=== PATIENT | male | born 1985 | race Caucasian/White ===

== ENCOUNTER → 2017-07-11 | Outpatient (CLI) | payer OTHER | LOC: BMCIMAGING 10:37 | PROVIDERS: ATTEND Emergency Medicine | DX: M79.671 Pain in right foot (principal); M25.571 Pain in right ankle and joints of right foot ==

== ENCOUNTER 2019-03-31 19:31 | Emergency (ER) | payer OTHER ==
[2019-03-31 19:36] VITALS: BP 149/112
[2019-03-31] MEDS ORDERED: ACETAMINOPHEN 325 MG TAB PO ONE (19:55)
[2019-03-31] MEDS ORDERED: IBUPROFEN 600 MG TAB PO ONE (19:55)
--- NOTE | 2019-03-31 19:57 | EDPHY ---
H & P Time Seen by Provider: 03/31/19 19:38 HPI/ROS: CHIEF COMPLAINT: Nontraumatic right knee pain HISTORY OF PRESENT ILLNESS: A little bit sore yesterday and then painful today. Mostly located behind the knee and worse with trying to straighten it out. Not associated with chest pain or shortness of breath. Does not radiate. Not associated with skin changes or fever or weakness or numbness in the foot. Moderate, not helped by 1 Motrin at 10:00 a.m. And 2 Motrin at 4:00 p.m.. REVIEW OF SYSTEMS: Eye: no change in vision ENT: no sore throat Cardiac: no chest pain or syncope Pulmonary: no cough or SOB Abdomen: no vomiting, diarrhea, abdominal pain Musculoskeletal: HPI Skin: no rash Neuro: no headache Constitutional: no fever : no urinary symptoms A comprehensive 10 point review of systems is otherwise negative aside from elements mentioned in the history of present illness. PAST MEDICAL HISTORY: Negative Social history: Recent plane travel from the [facility] General Appearance: Alert and conversant, cooperative. Eyes: No scleral icterus. ENT, Mouth: Normal mucous membranes. Respiratory: Normal respiratory effort, breath sounds equal, lungs are clear to auscultation. Cardiovascular: Regular rate and rhythm. Gastrointestinal: Abdomen is soft and non tender. Neurological: Alert, face symmetric, normal motor and sensory in extremities. Skin: Warm and dry, no rashes. No erythema, no blisters or eschar, no discoloration over the area of pain. Musculoskeletal: Right knee has decreased flexion to 100 degrees. Stable to varus and valgus stress. No joint effusion. No bony tenderness. He has tenderness posteriorly in the proximal calf. Compartments are soft. Normal motor sensory and vascular in the foot. Normal range of motion of the right hip and ankle. Psychiatric: Not agitated. Emergency Department course/MDM: Right knee x-ray, ultrasound to evaluate for DVT, Tylenol and ibuprofen. Differential considered including but not limited to fracture, meniscal problem , septic joint, DVT, arterial occlusion, compartment syndrome. 2115: X-ray and ultrasound reviewed with Dr. Meléndez, negative for DVT, has a small joint effusion. Results discussed with the patient. Crutches and knee immobilizer, orthopedic referral. Internal knee including but not limited to meniscal discussed with the patient. I think septic joint is unlikely. Smoking Status: Never smoked Constitutional: Initial Vital Signs Temperature (C) 37.5 C 03/31/19 19:35 Heart Rate 112 H 03/31/19 19:35 Respiratory Rate 16 03/31/19 19:35 Blood Pressure 149/112 H 03/31/19 19:35 O2 Sat (%) 96 03/31/19 19:35 O2 Delivery Mode Room Air Allergies/Adverse Reactions: Penicillins Allergy (Verified 03/31/19 19:35) Home Medications: Medication Instructions Recorded Lisinopril 03/31/19 Medical Decision Making - Diagnostics Imaging Results: Imaging Impressions Extremity Venous Study 03/31/19 19:55 Impression: 1. There is no sonographic evidence of deep or superficial vein thrombosis in the right lower extremity. 2. Suprapatellar joint effusion. Findings were discussed with LINK ISLAS MD at 21:14, on 03/31/2019. Knee X-Ray 03/31/19 19:55 Impression: Small suprapatellar joint effusion, with no acute osseous abnormality. Imaging: Discussed imaging studies w/ airport representative Radiologist - Data Points Medications Given: Discontinued Medications Acetaminophen (Tylenol) 650 mg PO EDNOW ONE Stop: 03/31/19 19:56 Last Admin: 03/31/19 20:10 Dose: 650 mg Ibuprofen (Motrin) 600 mg PO EDNOW ONE Stop: 03/31/19 19:56 Last Admin: 03/31/19 20:10 Dose: 600 mg Departure - Departure Disposition: Home, Routine, Self-Care Clinical Impression: Internal derangement of knee Qualifiers: Laterality: right Qualified Code(s): M23.91 - Unspecified internal derangement of right knee Condition: Good Instructions: Knee Pain (ED) Additional Instructions: Ultrasound shows no evidence of blood clot or DVT. X-ray shows small joint effusion. Okay to use Tylenol or ibuprofen for pain, wear knee immobilizer and crutches, call Orthopedics tomorrow for follow-up early next week. Referrals: Patient,NotPresent [Unknown] - As per Instructions Natalee Ceja MD [Medical Doctor] - As per Instructions
== END 2019-03-31 21:38 | disposition home or self-care (01) ==
DX: M23.91 Unspecified internal derangement of right knee (principal)
CPT/HCPCS: L1830

== ENCOUNTER → 2019-04-05 | Outpatient (CLI) | payer OTHER ==
[~2019-04-05] MED LIST: GADOBUTROL 10 ML VIAL IVP ONE
== END ==
LOC: FIMAGING 12:21
PROVIDERS: ATTEND Orthopaedic Surgery
DX: M25.461 Effusion, right knee (principal)
CPT/HCPCS: A9585